=== PATIENT | male | born 1950 | race Hispanic/Latino ===

== ENCOUNTER 2016-09-04 11:14 | Inpatient (IN) | payer MEDICARE ==
--- NOTE | 2016-09-04 12:00 | Emergency Department Report ---
HPI - General Chief Complaint: Medical Clearance Time Seen by Provider: 09/04/16 11:36 - HPI HPI: Room 24 The patient is a 66-year-old male presenting with a chief complaint of hypoxia weakness. Family states the patient seemed confused since last night and has not eaten for the "past couple days." Family states the physical therapist today who noticed the patient's SPO2 to be between 79-81% on states patient has had an occasional cough that has been productive for the past couple of weeks. The patient only complains of feeling tired and weak. Patient denies shortness of breath or pain of any type. When asked if anything is bothering him the patient repeatedly replies "just weak." Location: [see above] Duration: [see above] Quality: Weakness, hypoxia Severity: [see above] Modifying factors: Unknown Context: [see above] Mode of transportation: [not driving] ED Past Medical Hx - Past Medical History Previous Medical History?: Yes Hx Hypertension: Yes (10+ YRS) Hx CVA: Yes (x 2, last one in JUN 2016) Hx of Cancer: Yes (lymphoma s/p chemo Jul 2016. Prostate CA) Hx Seizures: Yes Additional medical history: Prostate Cancer. low platelets - Surgical History Past Surgical History?: Yes Additional Surgical History: port placement. back surgery. foot surg NED - Family History Family history: no significant - Social History Smoking Status: Current Every Day Smoker Substance Use Type: None - Medications Home Medications: Home Medications Medication Instructions Recorded Confirmed Last Taken Type Aspirin EC [Aspirin Enteric Coated 81 mg PO QDAY 03/15/15 09/04/16 09/03/16 History TAB] Atenolol [Tenormin] 50 mg PO BID 03/15/15 08/08/15 07/21/15 History Clopidogrel [Plavix] 75 mg PO QDAY 03/15/15 09/04/16 09/03/16 History Ezetimibe [Zetia] 10 mg PO QDAY 03/15/15 09/04/16 09/03/16 History Potassium Chloride [Klor-Con] 20 meq PO DAILY 03/15/15 08/08/15 07/21/15 History levETIRAcetam [Keppra TAB] 1,500 tab PO BID 03/15/15 09/04/16 09/03/16 History PARoxetine CR (NF) [Paxil (Nf)] 25 mg PO QAM 07/22/15 09/04/16 09/03/16 History Carvedilol [Coreg] 25 mg PO BID 08/08/15 09/04/16 09/03/16 History ALPRAZolam [Xanax TAB] 0.25 mg PO Q8H PRN #20 tablet 10/02/15 09/04/16 09/03/16 Rx amLODIPine [Norvasc] 5 mg PO DAILY 10/06/15 09/04/16 09/03/16 History Chlorthalidone [Chlorthalidone] 25 mg PO DAILY 04/17/16 09/04/16 09/03/16 History HYDROcodone/ACETAMINOPHEN 1 tab PO BID 04/17/16 09/04/16 09/03/16 History [Hydrocodon-Acetaminophen 5-325] Hydralazine HCl [Apresoline TAB] 50 mg PO BID 04/17/16 09/04/16 09/03/16 History Ibrutinib [Imbruvica] 280 mg PO QDAY 09/04/16 09/04/16 09/03/16 History Sulfamethoxazole/Trimethoprim 1 each PO BID 09/04/16 09/04/16 09/03/16 History [Bactrim DS TAB] ED Review of Systems ROS: Stated complaint: LOW OXYGEN Other details as noted in HPI Comment: All other systems reviewed and negative Constitutional: fever, weakness Eyes: denies: eye pain, eye discharge, vision change ENT: denies: ear pain, throat pain Respiratory: cough, other (hypoxia). denies: shortness of breath Cardiovascular: denies: chest pain, palpitations Endocrine: no symptoms reported Gastrointestinal: denies: abdominal pain, nausea, diarrhea Genitourinary: denies: urgency, dysuria Musculoskeletal: denies: back pain, joint swelling, arthralgia Skin: denies: rash, lesions Neurological: denies: headache, weakness, paresthesias Psychiatric: denies: anxiety, depression Hematological/Lymphatic: denies: easy bleeding, easy bruising Physical Exam - Physical Exam Vital Signs: Vital Signs 09/04/16 09/04/16 09/04/16 11:19 11:20 11:22 Pulse Rate Respiratory Rate Blood Pressure 93/48 93/48 93/48 O2 Sat by Pulse 90 94 96 Oximetry 09/04/16 09/04/16 09/04/16 11:23 11:24 11:26 Pulse Rate 95 H 98 H 101 H Respiratory 15 16 18 Rate Blood Pressure 93/48 93/48 93/48 O2 Sat by Pulse 96 95 95 Oximetry 09/04/16 09/04/16 11:28 11:30 Pulse Rate 99 H 99 H Respiratory 18 17 Rate Blood Pressure 93/48 91/52 O2 Sat by Pulse 93 Oximetry Physical Exam: GENERAL: The patient is well-developed well-nourished male lying on stretcher not appearing to be in acute distress. [] HEENT: Normocephalic. Atraumatic. Extraocular motions are intact. Patient has moist mucous membranes. NECK: Supple. Trachea midline CHEST/LUNGS: Clear to auscultation. There is no respiratory distress noted. HEART/CARDIOVASCULAR: Regular. There is no tachycardia. There is no gallop rub or murmur. ABDOMEN: Abdomen is soft, nontender. Patient has normal bowel sounds. There is no abdominal distention. SKIN: There is no rash. There is no edema. There is no diaphoresis. NEURO: The patient is awake but not extremely alert. Patient appears fatigued. The patient is cooperative. The patient has normal speech MUSCULOSKELETAL: There is no evidence of acute injury. ED Course Vital Signs 09/04/16 09/04/16 09/04/16 11:19 11:20 11:22 Pulse Rate Respiratory Rate Blood Pressure 93/48 93/48 93/48 O2 Sat by Pulse 90 94 96 Oximetry 09/04/16 09/04/16 09/04/16 11:23 11:24 11:26 Pulse Rate 95 H 98 H 101 H Respiratory 15 16 18 Rate Blood Pressure 93/48 93/48 93/48 O2 Sat by Pulse 96 95 95 Oximetry 09/04/16 09/04/16 11:28 11:30 Pulse Rate 99 H 99 H Respiratory 18 17 Rate Blood Pressure 93/48 91/52 O2 Sat by Pulse 93 Oximetry ED Medical Decision Making - Lab Data Result diagrams: 09/04/16 11:51 09/04/16 11:51 Laboratory Tests 09/04/16 09/04/16 09/04/16 11:36 11:51 11:51 WBC 4.5 RBC 2.36 L Hgb 7.8 L Hct 23.2 L MCV 98 H MCH 33 H MCHC 34 RDW 18.7 H Plt Count Lymph % (Auto) 16.6 [place] % (Auto) 10.3 H Eos % (Auto) 0.0 Baso % (Auto) 0.2 Lymph # 0.8 L [place] # 0.5 Eos # 0.0 Baso # 0.0 Seg Neutrophils % 72.9 H Seg Neutrophils # 3.3 PT INR APTT POC ABG pH POC ABG pCO2 POC ABG pO2 POC ABG HCO3 POC ABG Total CO2 POC ABG O2 Sat POC ABG Base Excess FiO2 Sodium 132 L Potassium 3.5 L Chloride 94.1 L Carbon Dioxide 23 Anion Gap 18 BUN 15 Creatinine 1.5 Estimated GFR 47 BUN/Creatinine Ratio 10.00 Glucose 87 Calcium 8.6 Troponin T < 0.010 Urine Color [place] Urine Turbidity Clear Urine pH 6.0 Ur Specific [place] 1.021 Urine Protein 30 mg/dl Urine Glucose (UA) Neg Urine Ketones Neg Urine Blood Mod Urine Nitrite Neg Urine Bilirubin Sm Urine Ictotest Negative Urine Urobilinogen 4.0 Ur Leukocyte Esterase Mod Urine WBC (Auto) 24.0 H Urine RBC (Auto) 22.0 U Epithel Cells (Auto) 1.0 Hyaline Casts 1 Urine Mucus Few 09/04/16 09/04/16 12:01 12:35 WBC RBC Hgb Hct MCV MCH MCHC RDW Plt Count Lymph % (Auto) [place] % (Auto) Eos % (Auto) Baso % (Auto) Lymph # [place] # Eos # Baso # Seg Neutrophils % Seg Neutrophils # PT 14.2 INR 1.11 APTT 32.0 POC ABG pH 7.443 POC ABG pCO2 33.7 L POC ABG pO2 52 L POC ABG HCO3 23.0 POC ABG Total CO2 24 POC ABG O2 Sat 88 POC ABG Base Excess -1 FiO2 21 Sodium Potassium Chloride Carbon Dioxide Anion Gap BUN Creatinine Estimated GFR BUN/Creatinine Ratio Glucose Calcium Troponin T Urine Color Urine Turbidity Urine pH Ur Specific [place] Urine Protein Urine Glucose (UA) Urine Ketones Urine Blood Urine Nitrite Urine Bilirubin Urine Ictotest Urine Urobilinogen Ur Leukocyte Esterase Urine WBC (Auto) Urine RBC (Auto) U Epithel Cells (Auto) Hyaline Casts Urine Mucus - EKG Data -: EKG Interpreted by Me EKG shows normal: sinus rhythm Rate: normal - EKG Data When compared to previous EKG there are: previous EKG unavailable Interpretation: nonspecific ST-T wave tani (mild ST depression in leads V5, V6) - Radiology Data Radiology results: image reviewed (chest x-ray) interpreted by me: Chest x-ray-left sided haziness, likely infiltrate versus layered effusion - Differential Diagnosis pneumonia, symptomatic anemia Critical care attestation.: If time is entered above; I have spent that time in minutes in the direct care of this critically ill patient, excluding procedure time. ED Disposition Clinical Impression: Hypoxia, Symptomatic anemia, Pleural effusion on left, Thrombocytopenia Disposition: OP ADMITTED IP TO THIS HOSP Is pt being admited?: Yes Does the pt Need Aspirin: No Condition: Fair Referrals: PRIMARY CARE, [Primary Care Provider] - 3-5 Days Time of Disposition: 12:57 (hospitalist paged)
--- NOTE | 2016-09-04 12:11 | XRay Report ---
PORTABLE CHEST: INDICATION: Low oxygen saturation. COMPARISON: 04/20/2010 FINDINGS: Portable, frontal chest radiographs, 2 images, demonstrate new right chest port tip near the cavoatrial junction. Stable cardiomediastinal silhouette. Mild aortic knob calcifications. Increased [id number] lung haziness, left more than right, suspicious for layering pleural fluid. Left retrocardiac opacity with obscured left hemidiaphragm also now suspected. Left more than right apical scarring/pleural thickening. EKG leads. Stable bones. CONCLUSION: New left more than right hazy suspected pleural effusions as also a right-sided chest port, as described. Please correlate. Thank you for the opportunity to participate in this patient's care.
[2016-09-04 12:17] LABS: INR 1.11 (0.87-1.13)
[2016-09-04 12:18] LABS: Basophils % (Auto) 0.2 % (0.0-1.8); Hematocrit 23.2 % (35.5-45.6); Hemoglobin 7.8 gm/dl (11.8-15.2); Mean Corpuscular HGB Conc 34 % (32-34); Mean Corpuscular Hemoglobin 33 pg (28-32); Mean Corpuscular Volume 98 fl (84-94); Red Blood Count 2.36 M/mm3 (3.65-5.03); Red Cell Distribution Width 18.7 % (13.2-15.2); White Blood Count 4.5 K/mm3 (4.5-11.0)
[2016-09-04 12:25] LABS: Blood Urea Nitrogen 15 mg/dL (9-20); Calcium 8.6 mg/dL (8.4-10.2); Carbon Dioxide 23 mmol/L (22-30); Chloride 94.1 mmol/L (98-107); Glucose 87 mg/dL (75-100); Potassium 3.5 mmol/L (3.6-5.0); Sodium 132 mmol/L (137-145)
[2016-09-04 12:26] LABS: Anion Gap 18 mmol/L
[2016-09-04 12:28] LABS: Bilirubin,Urine SM (Negative); Blood,Urine MOD (Negative); Ketones,Urine NEG (Negative); Leukocyte Esterase,Urine MOD (Negative); Mucus,Urine FEW /HPF; Nitrite,Urine NEG (Negative)
--- NOTE | 2016-09-04 12:34 | Admit Criteria Form ---
Admission Criteria Documentation: ANEMIA, IRON DEFICIENCY OR UNSPECIFIED Clinical Indications for Inpatient Care (Place 'X' for any and all applicable criteria): Admission is indicated for ANY ONE of the following(1)(2)(3)(4)(5)(6)(7): [X] I. Inpatient admission required rather than observation care (Also use Anemia, Iron Deficiency or Unspecified: Observation Care guideline as appropriate) because of ANY ONE of the following: [] a) Hemodynamic instability that is severe or persistent [] b) Active bleeding that cannot be rapidly controlled [] c) CVS symptoms (i.e., dyspnea, chest pain, heart failure) that are severe or persistent [] d) Neurologic symptoms (i.e., cognitive impairment, recurrent syncope or near syncope) that are severe or persistent [] e) Cardiac arrhythmias of immediate concern [] f) Acute peripheral ischemia (e.g., pulseless, cool, mottled, or cyanotic extremity) [X] g) High-risk low platelet count [] h) Acute renal failure [] i) Ongoing transfusion for blood loss (greater than 2 units) [] j) IV fluid to replace significant ongoing (eg, >24 hours) losses (> 3 L/m2 per day) [] k) Pulmonary artery catheter monitoring [] l) Supplemental oxygen or respiratory treatments for over 24 hours that are performable only in acute inpatient setting [] m) Immediate inpatient surgery [] n) Other condition, treatment or monitoring requiring inpatient admission [] II Active massive hemorrhage [] III. Active hemolysis with rapidly progressive anemia [A](6) Extended stay beyond goal length of stay may be needed for (17)(18) []a) Diagnosed cause of anemia requiring longer hospitalization (eg, active GI bleeding, immune hemolysis requiring electrophoresis, complications of malignancy requiring acute care []b) Continued emergent anemia indicators (23) []c) Transfusion reactions []d) Associated leukopenia or thrombocytopenia needing inpatient care []e) Active comorbidities (eg, renal failure, heart failure) The original [facility] Care Guidelines content created by [facility] Care Guidelines has been revised. The portions of the content which have been revised are identified through the use of italic text or in bold. [facility] Guidelines has neither reviewed nor approved the modified material. All other unmodified content is copyright [facility] Care Guidelines. Please see references footnoted in the original [facility] edition 2016 Admission Criteria Met: Yes
[2016-09-04 12:40] LABS: ISTAT Base Excess -1; ISTAT DEVICE 0; ISTAT PCO2 33.7 (35-45); ISTAT PH 7.443 (7.35-7.45); ISTAT PO2 52 (80-105); ISTAT SO2 88; ISTAT TCO2 24
[2016-09-04] MEDS ORDERED: NACL 0.9% 500 ML 500 ML IV ONE ×2 (12:48→12:53)
[2016-09-04 12:52] LABS: Creatine Kinase 8 units/L (55-170)
[2016-09-04 12:56] LABS: Platelet Count 14 K/mm3 (140-440)
[2016-09-04 12:58] LABS: Creatine Kinase MB < 1.0 ng/mL (0.0-4.0)
[2016-09-04] MEDS ORDERED: IBRUTINIB 280 MG PO SCH (15:00)
[2016-09-04] MEDS ORDERED: XANAX PO PRN (15:00)
[2016-09-04] MEDS ORDERED: NON-FORMULARY (Hydralazine Hcl [Apresoline Tab] 50 MG) PO SCH (15:00)
[2016-09-04] MEDS ORDERED: TYLENOL PO PRN (15:04)
[2016-09-04] MEDS ORDERED: MILK OF MAGNESIA PO PRN (15:04)
[2016-09-04] MEDS ORDERED: ZOFRAN IV PRN (15:04)
[2016-09-04] MEDS ORDERED: DILAUDID IV PRN (15:04)
[2016-09-04] MEDS ORDERED: DULCOLAX PR PRN (15:04)
[2016-09-04] MEDS ORDERED: XYLOCAINE 1% MPF 5 mL INFILTRATI ONE (15:17)
[2016-09-04] MEDS ORDERED: ROCEPHIN 1,000 MG in NACL 0.9% 50 ML IV SCH (17:00)
[2016-09-04] MEDS ORDERED: ROCEPHIN/NS 2 GM/100 ML 100 ML IV SCH (17:00)
[2016-09-04] MEDS ORDERED: NACL 0.9% 500 ML 500 ML ONE ×2 (17:42→17:43)
[2016-09-04] MEDS: NORCO 5/325 PO SCH ×2 (18:20→22:17)
[2016-09-04] MEDS: ROCEPHIN/NS 1 GM/50 ML 50 ML IV SCH (18:21)
[2016-09-04] MEDS: KEPPRA PO SCH ×2 (18:21→22:14)
[2016-09-04] MEDS: APRESOLINE PO SCH (22:18)
[2016-09-04] MEDS: COREG PO SCH (22:19)
--- NOTE | 2016-09-04 23:40 | Event Note ---
Date: 09/04/16 See H/p in reports
--- NOTE | 2016-09-05 00:35 | History and Physical Report ---
CHIEF COMPLAINT: 1. Severe weakness. 2. Not eating for the past couple of days. HISTORY OF PRESENT ILLNESS: A 66-year-old male with history of lymphoma on chemotherapy till 07/2016, comes in for severe weakness. His physical therapist noticed that the patient's oxygen saturations were between 79% and 81% and because of which he was sent to the Emergency Room for evaluation. The patient feels short of breath and not getting enough oxygen. Feels very weak. No fever, no chills. PAST MEDICAL HISTORY: Significant for hypertension, CVA with left-sided hemiparesis, last one was in 06/2016. History of cancer. Prostate cancer radiation therapy in 2006. Lymphoma with chemotherapy till 07/2016. Seizures present. Also low platelet count. PAST SURGICAL HISTORY: Port placement, back surgery, foot surgery bilaterally. FAMILY HISTORY: No significant family history. SOCIAL HISTORY: Current everyday smoker. CURRENT MEDICATIONS: Atenolol 250 mg twice a day, Plavix 75 mg once a day, Zetia 10 mg once a day, potassium 20 mEq p.o. once a day, Keppra 1500 mg twice a day, paroxetine 25 mg p.o. daily, Coreg 25 mg b.i.d., Xanax 0.25 p.o. q.8, amlodipine 5 mg p.o. daily, chlorthalidone 25 mg p.o. daily, [place] 5/325 one tablet b.i.d., hydralazine/Apresoline 50 mg p.o. b.i.d., Imbruvica 280 mg p.o. daily, Bactrim-DS one tablet b.i.d. REVIEW OF SYSTEMS: Significant for: CONSTITUTIONAL: Feeling very weak with loss of weight present and poor p.o. intake. Also fever. HEENT: There is no sore throat. No postnasal drip. No blurring of vision. RESPIRATORY SYSTEM: Feels short of breath and cough. CARDIOVASCULAR: No chest pain, no palpitations. GASTROINTESTINAL: No nausea, no vomiting, no diarrhea. MUSCULOSKELETAL SYSTEM: Feels very weak and joint pains. SKIN: No rashes. CENTRAL NERVOUS SYSTEM: No syncope, no seizures. PSYCHIATRIC: Denies anxiety, but depression. HEMATOLOGIC/LYMPHATIC: Denies easy bleeding and easy bruising. A 14-point review of systems is done. In summary, the patient feels weak and short of breath and poor p.o. intake. PHYSICAL EXAMINATION: GENERAL: Elderly male, cooperative during examination. VITAL SIGNS: Temperature is 99, blood pressure is 93/48, O2 sats are 92%, respiratory rate is 18. HEENT: Unremarkable. Pupils equal and reactive. NECK: Supple. No lymphadenopathy, no thyromegaly. LUNGS: Scattered rhonchi bilaterally. No respiratory distress. CARDIOVASCULAR: S1, S2 heard. No gallop, no murmur, no rub. Apical impulse in left fifth intercostal space and midclavicular line. ABDOMEN: Soft and benign. No hepatosplenomegaly, no guarding, no rigidity. Hernial orifices are normal. EXTREMITIES: Good pedal pulses. No pedal edema. CENTRAL NERVOUS SYSTEM: Alert, slightly lethargic, but otherwise oriented. SKIN: Normal. LABORATORY DATA: White count is 4500, hemoglobin is 7.8, hematocrit is 23.2, platelet count is 14, very low. Sodium is 132, potassium is 3.5. BUN and creatinine are 15 and 1.5. Chest x-ray shows bilateral pleural effusions, left more than the right. Also, right-sided chest port. EKG sinus tachycardia, heart rate of about 100. Nonspecific ST-T wave changes. ABG: pH is 7.443, pCO2 of 33.7, pO2 is 52, bicarb is 23, CO2 is 24. ASSESSMENT AND PLAN: 1. Acute respiratory failure secondary to possible lymphoma and effects of chemotherapy. Oxygen and DuoNeb for the time being. 2. Acute anemia. Transfuse 2 units of blood. 3. Severe thrombocytopenia. 4. Plateletpheresis. Platelet transfusion. 5. Hypotension. We will hold Coreg and atenolol. Also, we will hold hydralazine. 6. Lymphoma. We will continue Imbruvica, Oncology consulted. 7. Depression. Continue Paroxetine 25 mg daily. 8. Hyperlipidemia. Continue Zetia 10 mg p.o. daily. 9. Coronary artery disease and cerebrovascular accident. Continue Plavix 75 mg daily. In summary, the patient has anemia, hypoxia, and severe weakness and hyponatremia. The patient to be transfused and also IV fluids for the time being. We will defer to Oncology regarding further care of lymphoma. Also, hospice to be discussed with and patient at the appropriate time, maybe tomorrow or day after tomorrow. Prognosis is fair to guarded. JOB# [id number] NAIMA/CECILIO ARAUJO
[2016-09-05 08:07] LABS: Hematocrit 28.2 % (35.5-45.6); Hemoglobin 9.7 gm/dl (11.8-15.2); Mean Corpuscular HGB Conc 34 % (32-34); Mean Corpuscular Hemoglobin 33 pg (28-32); Mean Corpuscular Volume 96 fl (84-94); Red Blood Count 2.95 M/mm3 (3.65-5.03); Red Cell Distribution Width 17.7 % (13.2-15.2); White Blood Count 5.2 K/mm3 (4.5-11.0)
[2016-09-05 08:25] LABS: Platelet Count 12 K/mm3 (140-440)
[2016-09-05 08:31] LABS: Albumin 2.9 g/dL (3.9-5); Albumin/Globulin Ratio 1.6 %; BUN/Creatinine Ratio 11.66; Bilirubin,Total 2.2 mg/dL (0.1-1.2); Calcium 8.4 mg/dL (8.4-10.2); Chloride 92.8 mmol/L (98-107); Potassium 3.3 mmol/L (3.6-5.0); Total Protein 4.7 g/dL (6.3-8.2)
--- NOTE | 2016-09-05 09:25 | Hem/Onc Progress Note ---
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 I discussed the case with [facility] and they've advised to hold ibrutinib. Prognosis is poor. Agree with blood and platelet transfusion. May need to be considering hospice if the patient does not improve. Discussed with Subjective Date of service: 09/05/16 Interval history: Patient with history of B-cell prolymphocytic leukemia. Patient has been under [facility] care. He had initially been treated with Rituxan along with Cytoxan and vincristine and prednisone but had a lot of difficulty tolerating the treatment. Patient has also had right-sided MCA stroke with associated encephalopathy. He was recently switched to the ibrutinib which he had difficulty tolerating to and the dose has been reduced by half. Patient was admitted with worsening shortness of breath hypoxia and evidence of pneumonia and pancytopenia. Objective - Exam Narrative Exam: Quiet - Constitutional Vitals: Last Vital Signs Temp 96.7 F L 09/05/16 07:20 Pulse 80 09/05/16 07:20 Resp 20 09/05/16 07:20 BP 113/63 09/05/16 07:20 Pulse Ox 98 09/05/16 07:20 General appearance: disheveled Performance status: 4-completely disabled - Neck Neck: supple - Respiratory Respiratory: bilateral: diminished - Cardiovascular Rhythm: regular Extremities: No edema - Gastrointestinal General gastrointestinal: Present: soft - Labs Lab Results: Laboratory Results - last 24 hr 09/05/16 09/05/16 08:00 08:00 WBC 5.2 RBC 2.95 L Hgb 9.7 L Hct 28.2 L MCV 96 H MCH 33 H MCHC 34 RDW 17.7 H Plt Count 12 L* Sodium 132 L Potassium 3.3 L Chloride 92.8 L Carbon Dioxide 25 Anion Gap 18 BUN 21 H Creatinine 1.8 H Estimated GFR 38 BUN/Creatinine Ratio 11.66 Glucose 81 Calcium 8.4 Total Bilirubin 2.2 H AST 95 H ALT 70 H Alkaline Phosphatase 171 H Total Protein 4.7 L Albumin 2.9 L Albumin/Globulin Ratio 1.6
[2016-09-05 09:28] LABS: Basophils % (Manual) 0 % (0.0-1.8); Blastocytes % (Manual) 0 %; Eosinophils % (Manual) 0 % (0.0-4.3)
[2016-09-05 09:29] LABS: Anisocytosis 1+; Macrocytosis 1+; Ovalocytes 1+
[2016-09-05 09:30] LABS: Acanthocytes Few; Polychromasia 1+; Schistocytes Rare
[2016-09-05 09:31] LABS: Diff Status Complete; Platelet Estimate Appears Decreased
[2016-09-05] MEDS ORDERED: IBRUTINIB 280 MG PO SCH (10:00)
[2016-09-05] MEDS ORDERED: PAROXETINE 25 MG PO SCH (10:00)
[2016-09-05] MEDS: NORVASC PO SCH (10:41)
[2016-09-05] MEDS: APRESOLINE PO SCH ×2 (10:41→21:21)
[2016-09-05] MEDS: COREG PO SCH ×2 (10:41→21:20)
[2016-09-05] MEDS: KEPPRA PO SCH ×2 (10:45→21:19)
[2016-09-05] MEDS: NORCO 5/325 PO SCH ×2 (10:45→21:18)
[2016-09-05] MEDS ORDERED: NACL 0.9% 500 ML 500 ML IV ONE (12:00)
--- NOTE | 2016-09-05 17:19 | Progress Note ---
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 HEENT: Normocephalic. Atraumatic. No conjunctival congestion or icterus. Patient has dry mucous membranes. NECK: Supple. Trachea midline. CHEST/LUNGS: Clear to auscultated bilaterally, breathing nonlabored. No wheezes crackles or rhonchi. HEART/CARDIOVASCULAR: Regular in rate and rhythm. S1 and S2 positive. ABDOMEN: Abdomen is soft, nontender. Patient has normal bowel sounds. SKIN: Multiple bruises on extremities. Warm and dry. NEURO: No focal motor deficit. Follows command, but appears to be confused MUSCULOSKELETAL: No joint effusion or tenderness. Generalized muscle wasting EXTRIMITY: No edema, no cyanosis or clubbing. PSYCH: Cooperative. - Constitutional Vitals: Temp Pulse Resp BP Pulse Ox 98.2 F 88 16 100/56 97 09/05/16 16:57 09/05/16 16:57 09/05/16 16:57 09/05/16 16:57 09/05/16 14:20 Results - Labs CBC & Chem 7: 09/06/16 04:48 09/06/16 04:48 Labs: Laboratory Last Values WBC 5.2 K/mm3 (4.5-11.0) 09/05/16 08:00 RBC 2.95 M/mm3 (3.65-5.03) L 09/05/16 08:00 Hgb 9.7 gm/dl (11.8-15.2) L 09/05/16 08:00 Hct 28.2 % (35.5-45.6) L 09/05/16 08:00 MCV 96 fl (84-94) H 09/05/16 08:00 MCH 33 pg (28-32) H 09/05/16 08:00 MCHC 34 % (32-34) 09/05/16 08:00 RDW 17.7 % (13.2-15.2) H 09/05/16 08:00 Plt Count 12 K/mm3 (140-440) L* 09/05/16 08:00 Lymph % (Auto) 16.6 % (13.4-35.0) 09/04/16 11:51 [place] % (Auto) 10.3 % (0.0-7.3) H 09/04/16 11:51 Eos % (Auto) 0.0 % (0.0-4.3) 09/04/16 11:51 Baso % (Auto) 0.2 % (0.0-1.8) 09/04/16 11:51 Lymph # 0.8 K/mm3 (1.2-5.4) L 09/04/16 11:51 [place] # 0.5 K/mm3 (0.0-0.8) 09/04/16 11:51 Eos # 0.0 K/mm3 (0.0-0.4) 09/04/16 11:51 Baso # 0.0 K/mm3 (0.0-0.1) 09/04/16 11:51 Add Manual Diff Complete 09/05/16 08:00 Total Counted 100 09/05/16 08:00 Seg Neutrophils % 72.9 % (40.0-70.0) H 09/04/16 11:51 Seg Neuts % (Manual) 90.0 % (40.0-70.0) H 09/05/16 08:00 Band Neutrophils % 2.0 % 09/05/16 08:00 Lymphocytes % (Manual) 5.0 % (13.4-35.0) L 09/05/16 08:00 Reactive Lymphs % (Man) 1.0 % 09/05/16 08:00 Monocytes % (Manual) 2.0 % (0.0-7.3) 09/05/16 08:00 Eosinophils % (Manual) 0 % (0.0-4.3) 09/05/16 08:00 Basophils % (Manual) 0 % (0.0-1.8) 09/05/16 08:00 Metamyelocytes % 0 % 09/05/16 08:00 Myelocytes % 0 % 09/05/16 08:00 Promyelocytes % 0 % 09/05/16 08:00 Blast Cells % 0 % 09/05/16 08:00 Nucleated RBC % Not Reportable 09/05/16 08:00 Seg Neutrophils # 3.3 K/mm3 (1.8-7.7) 09/04/16 11:51 Seg Neutrophils # Man 4.7 K/mm3 (1.8-7.7) 09/05/16 08:00 Band Neutrophils # 0.1 K/mm3 09/05/16 08:00 Lymphocytes # (Manual) 0.3 K/mm3 (1.2-5.4) L 09/05/16 08:00 Abs React Lymphs (Man) 0.1 K/mm3 09/05/16 08:00 Monocytes # (Manual) 0.1 K/mm3 (0.0-0.8) 09/05/16 08:00 Eosinophils # (Manual) 0.0 K/mm3 (0.0-0.4) 09/05/16 08:00 Basophils # (Manual) 0.0 K/mm3 (0.0-0.1) 09/05/16 08:00 Metamyelocytes # 0.0 K/mm3 09/05/16 08:00 Myelocytes # 0.0 K/mm3 09/05/16 08:00 Promyelocytes # 0.0 K/mm3 09/05/16 08:00 Blast Cells # 0.0 K/mm3 09/05/16 08:00 WBC Morphology Not Reportable 09/05/16 08:00 Hypersegmented Neuts Not Reportable 09/05/16 08:00 Hyposegmented Neuts Not Reportable 09/05/16 08:00 Hypogranular Neuts Not Reportable 09/05/16 08:00 Smudge Cells Not Reportable 09/05/16 08:00 Toxic Granulation Not Reportable 09/05/16 08:00 Toxic Vacuolation Not Reportable 09/05/16 08:00 Dohle Bodies Not Reportable 09/05/16 08:00 Pelger-Huet Anomaly Not Reportable 09/05/16 08:00 Emmy Rods Not Reportable 09/05/16 08:00 Platelet Estimate Appears decreased 09/05/16 08:00 Clumped Platelets Not Reportable 09/05/16 08:00 Plt Clumps, EDTA Not Reportable 09/05/16 08:00 Large Platelets Not Reportable 09/05/16 08:00 Giant Platelets Not Reportable 09/05/16 08:00 Platelet Satelliting Not Reportable 09/05/16 08:00 Plt Morphology Comment Not Reportable 09/05/16 08:00 RBC Morphology Not Reportable 09/05/16 08:00 Dimorphic RBCs Not Reportable 09/05/16 08:00 Polychromasia 1+ 09/05/16 08:00 Hypochromasia Not Reportable 09/05/16 08:00 Poikilocytosis Not Reportable 09/05/16 08:00 Anisocytosis 1+ 09/05/16 08:00 Microcytosis Not Reportable 09/05/16 08:00 Macrocytosis 1+ 09/05/16 08:00 Spherocytes Not Reportable 09/05/16 08:00 Pappenheimer Bodies Not Reportable 09/05/16 08:00 Sickle Cells Not Reportable 09/05/16 08:00 Target Cells Not Reportable 09/05/16 08:00 Tear Drop Cells Not Reportable 09/05/16 08:00 Ovalocytes 1+ 09/05/16 08:00 Helmet Cells Not Reportable 09/05/16 08:00 [place] Bodies Not Reportable 09/05/16 08:00 [place] Rings Not Reportable 09/05/16 08:00 [place] Cells Not Reportable 09/05/16 08:00 Bite Cells Not Reportable 09/05/16 08:00 Crenated Cell Not Reportable 09/05/16 08:00 Elliptocytes Not Reportable 09/05/16 08:00 Acanthocytes (Spur) Few 09/05/16 08:00 Rouleaux Not Reportable 09/05/16 08:00 Hemoglobin C Crystals Not Reportable 09/05/16 08:00 Schistocytes Rare 09/05/16 08:00 Malaria parasites Not Reportable 09/05/16 08:00 Rian Bodies Not Reportable 09/05/16 08:00 Hem Pathologist Commnt No 09/05/16 08:00 PT 14.2 Sec. (12.2-14.9) 09/04/16 12:01 INR 1.11 (0.87-1.13) 09/04/16 12:01 APTT 32.0 Sec. (24.2-36.6) 09/04/16 12:01 POC ABG pH 7.443 (7.35-7.45) 09/04/16 12:35 POC ABG pCO2 33.7 (35-45) L 09/04/16 12:35 POC ABG pO2 52 (80-105) L 09/04/16 12:35 POC ABG HCO3 23.0 09/04/16 12:35 POC ABG Total CO2 24 09/04/16 12:35 POC ABG O2 Sat 88 09/04/16 12:35 POC ABG Base Excess -1 09/04/16 12:35 FiO2 21 % 09/04/16 12:35 Sodium 132 mmol/L (137-145) L 09/05/16 08:00 Potassium 3.3 mmol/L (3.6-5.0) L 09/05/16 08:00 Chloride 92.8 mmol/L (98-107) L 09/05/16 08:00 Carbon Dioxide 25 mmol/L (22-30) 09/05/16 08:00 Anion Gap 18 mmol/L 09/05/16 08:00 BUN 21 mg/dL (9-20) H 09/05/16 08:00 Creatinine 1.8 mg/dL (0.8-1.5) H 09/05/16 08:00 Estimated GFR 38 ml/min 09/05/16 08:00 BUN/Creatinine Ratio 11.66 % 09/05/16 08:00 Glucose 81 mg/dL (75-100) 09/05/16 08:00 Calcium 8.4 mg/dL (8.4-10.2) 09/05/16 08:00 Total Bilirubin 2.2 mg/dL (0.1-1.2) H 09/05/16 08:00 AST 95 units/L (5-40) H 09/05/16 08:00 ALT 70 units/L (7-56) H 09/05/16 08:00 Alkaline Phosphatase 171 units/L (35-129) H 09/05/16 08:00 Total Creatine Kinase 8 units/L (55-170) L 09/04/16 11:51 CK-MB (CK-2) < 1.0 ng/mL (0.0-4.0) 09/04/16 11:51 CK-MB (CK-2) Rel Index 12.5 (0-4) H 09/04/16 11:51 Troponin T < 0.010 ng/mL (0.00-0.029) 09/04/16 11:51 NT-Pro-B Natriuret Pep 902.7 pg/mL (0-900) H 09/04/16 11:51 Total Protein 4.7 g/dL (6.3-8.2) L 09/05/16 08:00 Albumin 2.9 g/dL (3.9-5) L 09/05/16 08:00 Albumin/Globulin Ratio 1.6 % 09/05/16 08:00 Urine Color [place] (Yellow) 09/04/16 11:36 Urine Turbidity Clear (Clear) 09/04/16 11:36 Urine pH 6.0 (5.0-7.0) 09/04/16 11:36 Ur Specific [place] 1.021 (1.003-1.030) 09/04/16 11:36 Urine Protein 30 mg/dl mg/dL (Negative) 09/04/16 11:36 Urine Glucose (UA) Neg mg/dL (Negative) 09/04/16 11:36 Urine Ketones Neg mg/dL (Negative) 09/04/16 11:36 Urine Blood Mod (Negative) 09/04/16 11:36 Urine Nitrite Neg (Negative) 09/04/16 11:36 Urine Bilirubin Sm (Negative) 09/04/16 11:36 Urine Ictotest Negative (Negative) 09/04/16 11:36 Urine Urobilinogen 4.0 mg/dL (<2.0) 09/04/16 11:36 Ur Leukocyte Esterase Mod (Negative) 09/04/16 11:36 Urine WBC (Auto) 24.0 /HPF (0.0-6.0) H 09/04/16 11:36 Urine RBC (Auto) 22.0 /HPF (0.0-6.0) 09/04/16 11:36 U Epithel Cells (Auto) 1.0 /HPF (0-13.0) 09/04/16 11:36 Hyaline Casts 1 /LPF 09/04/16 11:36 Urine Mucus Few /HPF 09/04/16 11:36 Blood Type B POSITIVE 09/04/16 13:50 Antibody Screen Negative 09/04/16 13:50 Crossmatch See Detail 09/04/16 13:50
[2016-09-06 05:21] LABS: Hematocrit 28.8 % (35.5-45.6); Hemoglobin 9.8 gm/dl (11.8-15.2); Mean Corpuscular HGB Conc 34 % (32-34); Mean Corpuscular Hemoglobin 33 pg (28-32); Mean Corpuscular Volume 97 fl (84-94); Red Blood Count 2.98 M/mm3 (3.65-5.03); Red Cell Distribution Width 18.2 % (13.2-15.2); White Blood Count 7.6 K/mm3 (4.5-11.0)
[2016-09-06 05:34] LABS: Platelet Count 17 K/mm3 (140-440)
[2016-09-06 05:41] LABS: Calcium 8.7 mg/dL (8.4-10.2); Chloride 93.7 mmol/L (98-107); Potassium 3.9 mmol/L (3.6-5.0)
[2016-09-06 08:03] LABS: Basophils % (Manual) 0 % (0.0-1.8); Blastocytes % (Manual) 0 %; Eosinophils % (Manual) 0 % (0.0-4.3)
[2016-09-06 08:04] LABS: Anisocytosis 1+
[2016-09-06 08:05] LABS: Basophilic Stippling Rare; Diff Status Complete; Ovalocytes 1+; Polychromasia Few; Schistocytes Rare
[2016-09-06] MEDS: D5NS 1,000 ML IV SCH ×2 (09:13→19:30)
--- NOTE | 2016-09-06 09:23 | Hem/Onc Progress Note ---
Assessment and Plan prog poor plt transfusion hold ibrutinib hospice eval Subjective Date of service: 09/06/16 Interval history: Patient with history of B-cell prolymphocytic leukemia. Patient has been under [facility] care. He had initially been treated with Rituxan along with Cytoxan and vincristine and prednisone but had a lot of difficulty tolerating the treatment. Patient has also had right-sided MCA stroke with associated encephalopathy. He was recently switched to the ibrutinib which he had difficulty tolerating to and the dose has been reduced by half. Patient was admitted with worsening shortness of breath hypoxia and evidence of pneumonia and pancytopenia. confused today dec urine output not present Objective - Exam Narrative Exam: weak - Constitutional Vitals: Last Vital Signs Temp 98 F 09/06/16 08:00 Pulse 90 09/06/16 08:00 Resp 18 09/06/16 08:00 BP 120/62 09/06/16 08:00 Pulse Ox 97 09/06/16 08:00 General appearance: disheveled Performance status: 4-completely disabled - Cardiovascular Rhythm: regular Extremity abnormal: edema - Gastrointestinal General gastrointestinal: Present: soft - Labs Lab Results: Laboratory Results - last 24 hr 09/05/16 09/06/16 09/06/16 08:00 04:48 04:48 WBC 7.6 RBC 2.98 L Hgb 9.8 L Hct 28.8 L MCV 97 H MCH 33 H MCHC 34 RDW 18.2 H Plt Count 17 L* Add Manual Diff Complete Complete Total Counted 100 100 Seg Neuts % (Manual) 90.0 H 82.0 H Band Neutrophils % 2.0 7.0 Lymphocytes % (Manual) 5.0 L 6.0 L Reactive Lymphs % (Man) 1.0 0 Monocytes % (Manual) 2.0 5.0 Eosinophils % (Manual) 0 0 Basophils % (Manual) 0 0 Metamyelocytes % 0 0 Myelocytes % 0 0 Promyelocytes % 0 0 Blast Cells % 0 0 Nucleated RBC % Not Reportable 3.0 H Seg Neutrophils # Man 4.7 6.2 Band Neutrophils # 0.1 0.5 Lymphocytes # (Manual) 0.3 L 0.5 L Abs React Lymphs (Man) 0.1 0.0 Monocytes # (Manual) 0.1 0.4 Eosinophils # (Manual) 0.0 0.0 Basophils # (Manual) 0.0 0.0 Metamyelocytes # 0.0 0.0 Myelocytes # 0.0 0.0 Promyelocytes # 0.0 0.0 Blast Cells # 0.0 0.0 WBC Morphology Not Reportable Not Reportable Hypersegmented Neuts Not Reportable Not Reportable Hyposegmented Neuts Not Reportable Not Reportable Hypogranular Neuts Not Reportable Not Reportable Smudge Cells Not Reportable Not Reportable Toxic Granulation Not Reportable Not Reportable Toxic Vacuolation Not Reportable Not Reportable Dohle Bodies Not Reportable Not Reportable Pelger-Huet Anomaly Not Reportable Not Reportable Emmy Rods Not Reportable Not Reportable Platelet Estimate Appears decreased Not Reportable Clumped Platelets Not Reportable Not Reportable Plt Clumps, EDTA Not Reportable Not Reportable Large Platelets Not Reportable Not Reportable Giant Platelets Not Reportable Not Reportable Platelet Satelliting Not Reportable Not Reportable Plt Morphology Comment Not Reportable Not Reportable RBC Morphology Not Reportable Not Reportable Dimorphic RBCs Not Reportable Not Reportable Polychromasia 1+ Few Hypochromasia Not Reportable Not Reportable Poikilocytosis Not Reportable Not Reportable Basophilic [place]ipp[place] Rare Anisocytosis 1+ 1+ Microcytosis Not Reportable Not Reportable Macrocytosis 1+ Not Reportable Spherocytes Not Reportable Not Reportable Pappenheimer Bodies Not Reportable Not Reportable Sickle Cells Not Reportable Not Reportable Target Cells Not Reportable Not Reportable Tear Drop Cells Not Reportable Not Reportable Ovalocytes 1+ 1+ Helmet Cells Not Reportable Not Reportable [place] Bodies Not Reportable Not Reportable [place] Rings Not Reportable Not Reportable [place] Cells Not Reportable Not Reportable Bite Cells Not Reportable Not Reportable Crenated Cell Not Reportable Not Reportable Elliptocytes Not Reportable Not Reportable Acanthocytes (Spur) Few Not Reportable Rouleaux Not Reportable Not Reportable Hemoglobin C Crystals Not Reportable Not Reportable Schistocytes Rare Rare Malaria parasites Not Reportable Not Reportable Rian Bodies Not Reportable Not Reportable Hem Pathologist Commnt No No Sodium 134 L Potassium 3.9 Chloride 93.7 L Carbon Dioxide 19 L Anion Gap 25 BUN 24 H Creatinine 2.0 H Estimated GFR 34 BUN/Creatinine Ratio 12.00 Glucose 57 L Calcium 8.7
[2016-09-06] MEDS: NORVASC PO SCH (11:59)
[2016-09-06] MEDS ORDERED: NACL 0.9% 500 ML 500 ML IV ONE (12:00)
[2016-09-06] MEDS: NORCO 5/325 PO SCH ×2 (12:00→22:37)
[2016-09-06] MEDS: APRESOLINE PO SCH ×2 (12:00→22:40)
[2016-09-06] MEDS: KEPPRA PO SCH ×2 (12:01→22:36)
[2016-09-06] MEDS: COREG PO SCH ×2 (12:01→23:40)
[2016-09-06] MEDS: ROCEPHIN/NS 1 GM/50 ML 50 ML IV SCH ×2 (20:00→20:01)
[2016-09-07 07:00] LABS: Hematocrit 32.9 % (35.5-45.6); Hemoglobin 10.6 gm/dl (11.8-15.2); Mean Corpuscular HGB Conc 32 % (32-34); Mean Corpuscular Hemoglobin 32 pg (28-32); Mean Corpuscular Volume 100 fl (84-94); Red Cell Distribution Width 19.5 % (13.2-15.2); White Blood Count 16.4 K/mm3 (4.5-11.0)
[2016-09-07 07:11] LABS: Platelet Count 33 K/mm3 (140-440)
[2016-09-07 08:12] LABS: Anisocytosis 1+; Basophils % (Manual) 0 % (0.0-1.8); Blastocytes % (Manual) 0 %; Eosinophils % (Manual) 0 % (0.0-4.3)
[2016-09-07 08:13] LABS: Ovalocytes Few; Polychromasia Rare; Toxic Vacuolation Few
[2016-09-07 08:14] LABS: Diff Status Complete; Platelet Estimate Appears Decreased
--- NOTE | 2016-09-07 08:24 | Hem/Onc Progress Note ---
Assessment and Plan prog poor plt transfusion hold ibrutinib hospice eval Discussed with yesterday about prognosis. I would suggest hospice. sheis still thinking about it. I have discussed with [facility] also patient's overall prognosis which is very poor Subjective Date of service: 09/07/16 Interval history: Patient with history of B-cell prolymphocytic leukemia. Patient has been under [facility] care. He had initially been treated with Rituxan along with Cytoxan and vincristine and prednisone but had a lot of difficulty tolerating the treatment. Patient has also had right-sided MCA stroke with associated encephalopathy. He was recently switched to the ibrutinib which he had difficulty tolerating to and the dose has been reduced by half. Patient was admitted with worsening shortness of breath hypoxia and evidence of pneumonia and pancytopenia. confused today - worse dec urine output not present Objective - Exam Narrative Exam: weak and confused - Constitutional Vitals: Last Vital Signs Temp 98.7 F 09/07/16 04:00 Pulse 100 H 09/07/16 04:00 Resp 22 09/07/16 04:00 BP 125/60 09/07/16 04:00 Pulse Ox 97 09/07/16 04:00 General appearance: disheveled, malodorous Performance status: 4-completely disabled - Respiratory Respiratory: bilateral: diminished - Cardiovascular Rhythm: regular - Gastrointestinal General gastrointestinal: Present: soft - Labs Lab Results: Laboratory Results - last 24 hr 09/07/16 06:23 WBC 16.4 H RBC 3.30 L Hgb 10.6 L Hct 32.9 L MCV 100 H D MCH 32 MCHC 32 RDW 19.5 H Plt Count 33 L Add Manual Diff Complete Total Counted 100 Seg Neuts % (Manual) 85.0 H Band Neutrophils % 5.0 Lymphocytes % (Manual) 5.0 L Reactive Lymphs % (Man) 0 Monocytes % (Manual) 3.0 Eosinophils % (Manual) 0 Basophils % (Manual) 0 Metamyelocytes % 2.0 Myelocytes % 0 Promyelocytes % 0 Blast Cells % 0 Nucleated RBC % 3.0 H Seg Neutrophils # Man 13.9 H Band Neutrophils # 0.8 Lymphocytes # (Manual) 0.8 L Abs React Lymphs (Man) 0.0 Monocytes # (Manual) 0.5 Eosinophils # (Manual) 0.0 Basophils # (Manual) 0.0 Metamyelocytes # 0.3 Myelocytes # 0.0 Promyelocytes # 0.0 Blast Cells # 0.0 WBC Morphology Not Reportable Hypersegmented Neuts Not Reportable Hyposegmented Neuts Not Reportable Hypogranular Neuts Not Reportable Smudge Cells Not Reportable Toxic Granulation Not Reportable Toxic Vacuolation Few Dohle Bodies Not Reportable Pelger-[place]uet Anomaly Not Reportable Emmy Rods Not Reportable Platelet Estimate Appears decreased Clumped Platelets Not Reportable Plt Clumps, EDTA Not Reportable Large Platelets Not Reportable Giant Platelets Not Reportable Platelet Satelliting Not Reportable Plt Morphology Comment Not Reportable RBC Morphology Not Reportable Dimorphic RBCs Not Reportable Polychromasia Rare Hypochromasia Not Reportable Poikilocytosis Not Reportable Anisocytosis 1+ Microcytosis Not Reportable Macrocytosis Not Reportable Spherocytes Not Reportable Pappenheimer Bodies Not Reportable Sickle Cells Not Reportable Target Cells Not Reportable Tear Drop Cells Not Reportable Ovalocytes Few Helmet Cells Not Reportable [place] Bodies Not Reportable [place] Rings Not Reportable [place] Cells Not Reportable Bite Cells Not Reportable Crenated Cell Not Reportable Elliptocytes Not Reportable Acanthocytes (Spur) Not Reportable Rouleaux Not Reportable Hemoglobin C Crystals Not Reportable Schistocytes Not Reportable Malaria parasites Not Reportable Rian Bodies Not Reportable Hem Pathologist Commnt No
[2016-09-07 08:48] VITALS: BP 120/64
--- NOTE | 2016-09-07 09:24 | Progress Note ---
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 Medical records and medication list reviewed. No acute event overnight noted by the RN. Patient has poor oral intake and remains confused. renal function further declined. at bedside, discussed about hospice Hospitalist Physical - Physical exam Narrative exam: GENERAL: Elderly white male lying on bed appeared to be in no discomfort. HEENT: Normocephalic. Atraumatic. No conjunctival congestion or icterus. Patient has dry mucous membranes. NECK: Supple. Trachea midline. CHEST/LUNGS: Clear to auscultated bilaterally, breathing nonlabored. No wheezes crackles or rhonchi. HEART/CARDIOVASCULAR: Regular in rate and rhythm. S1 and S2 positive. ABDOMEN: Abdomen is soft, nontender. Patient has normal bowel sounds. SKIN: Multiple bruises on extremities. Warm and dry. NEURO: No focal motor deficit. Follows command, but appears to be confused MUSCULOSKELETAL: No joint effusion or tenderness. Generalized muscle wasting EXTRIMITY: No edema, no cyanosis or clubbing. PSYCH: Cooperative. - Constitutional Vitals: Temp Pulse Resp BP Pulse Ox 98.2 F 90 22 120/64 98 09/07/16 08:00 09/07/16 08:00 09/07/16 08:00 09/07/16 08:00 09/07/16 08:00 Results - Labs CBC & Chem 7: 09/07/16 06:23 09/06/16 04:48 Labs: Laboratory Last Values WBC 16.4 K/mm3 (4.5-11.0) H 09/07/16 06:23 RBC 3.30 M/mm3 (3.65-5.03) L 09/07/16 06:23 Hgb 10.6 gm/dl (11.8-15.2) L 09/07/16 06:23 Hct 32.9 % (35.5-45.6) L 09/07/16 06:23 MCV 100 fl (84-94) H D 09/07/16 06:23 MCH 32 pg (28-32) 09/07/16 06:23 MCHC 32 % (32-34) 09/07/16 06:23 RDW 19.5 % (13.2-15.2) H 09/07/16 06:23 Plt Count 33 K/mm3 (140-440) L 09/07/16 06:23 Lymph % (Auto) 16.6 % (13.4-35.0) 09/04/16 11:51 [place] % (Auto) 10.3 % (0.0-7.3) H 09/04/16 11:51 Eos % (Auto) 0.0 % (0.0-4.3) 09/04/16 11:51 Baso % (Auto) 0.2 % (0.0-1.8) 09/04/16 11:51 Lymph # 0.8 K/mm3 (1.2-5.4) L 09/04/16 11:51 [place] # 0.5 K/mm3 (0.0-0.8) 09/04/16 11:51 Eos # 0.0 K/mm3 (0.0-0.4) 09/04/16 11:51 Baso # 0.0 K/mm3 (0.0-0.1) 09/04/16 11:51 Add Manual Diff Complete 09/07/16 06:23 Total Counted 100 09/07/16 06:23 Seg Neutrophils % 72.9 % (40.0-70.0) H 09/04/16 11:51 Seg Neuts % (Manual) 85.0 % (40.0-70.0) H 09/07/16 06:23 Band Neutrophils % 5.0 % 09/07/16 06:23 Lymphocytes % (Manual) 5.0 % (13.4-35.0) L 09/07/16 06:23 Reactive Lymphs % (Man) 0 % 09/07/16 06:23 Monocytes % (Manual) 3.0 % (0.0-7.3) 09/07/16 06:23 Eosinophils % (Manual) 0 % (0.0-4.3) 09/07/16 06:23 Basophils % (Manual) 0 % (0.0-1.8) 09/07/16 06:23 Metamyelocytes % 2.0 % 09/07/16 06:23 Myelocytes % 0 % 09/07/16 06:23 Promyelocytes % 0 % 09/07/16 06:23 Blast Cells % 0 % 09/07/16 06:23 Nucleated RBC % 3.0 % (0.0-0.9) H 09/07/16 06:23 Seg Neutrophils # 3.3 K/mm3 (1.8-7.7) 09/04/16 11:51 Seg Neutrophils # Man 13.9 K/mm3 (1.8-7.7) H 09/07/16 06:23 Band Neutrophils # 0.8 K/mm3 09/07/16 06:23 Lymphocytes # (Manual) 0.8 K/mm3 (1.2-5.4) L 09/07/16 06:23 Abs React Lymphs (Man) 0.0 K/mm3 09/07/16 06:23 Monocytes # (Manual) 0.5 K/mm3 (0.0-0.8) 09/07/16 06:23 Eosinophils # (Manual) 0.0 K/mm3 (0.0-0.4) 09/07/16 06:23 Basophils # (Manual) 0.0 K/mm3 (0.0-0.1) 09/07/16 06:23 Metamyelocytes # 0.3 K/mm3 09/07/16 06:23 Myelocytes # 0.0 K/mm3 09/07/16 06:23 Promyelocytes # 0.0 K/mm3 09/07/16 06:23 Blast Cells # 0.0 K/mm3 09/07/16 06:23 WBC Morphology Not Reportable 09/07/16 06:23 Hypersegmented Neuts Not Reportable 09/07/16 06:23 Hyposegmented Neuts Not Reportable 09/07/16 06:23 Hypogranular Neuts Not Reportable 09/07/16 06:23 Smudge Cells Not Reportable 09/07/16 06:23 Toxic Granulation Not Reportable 09/07/16 06:23 Toxic Vacuolation Few 09/07/16 06:23 Dohle Bodies Not Reportable 09/07/16 06:23 Pelger-Huet Anomaly Not Reportable 09/07/16 06:23 Emmy Rods Not Reportable 09/07/16 06:23 Platelet Estimate Appears decreased 09/07/16 06:23 Clumped Platelets Not Reportable 09/07/16 06:23 Plt Clumps, EDTA Not Reportable 09/07/16 06:23 Large Platelets Not Reportable 09/07/16 06:23 Giant Platelets Not Reportable 09/07/16 06:23 Platelet Satelliting Not Reportable 09/07/16 06:23 Plt Morphology Comment Not Reportable 09/07/16 06:23 RBC Morphology Not Reportable 09/07/16 06:23 Dimorphic RBCs Not Reportable 09/07/16 06:23 Polychromasia Rare 09/07/16 06:23 Hypochromasia Not Reportable 09/07/16 06:23 Poikilocytosis Not Reportable 09/07/16 06:23 Basophilic Stippling Rare 09/06/16 04:48 Anisocytosis 1+ 09/07/16 06:23 Microcytosis Not Reportable 09/07/16 06:23 Macrocytosis Not Reportable 09/07/16 06:23 Spherocytes Not Reportable 09/07/16 06:23 Pappenheimer Bodies Not Reportable 09/07/16 06:23 Sickle Cells Not Reportable 09/07/16 06:23 Target Cells Not Reportable 09/07/16 06:23 Tear Drop Cells Not Reportable 09/07/16 06:23 Ovalocytes Few 09/07/16 06:23 Helmet Cells Not Reportable 09/07/16 06:23 Farmer-[place] Bodies Not Reportable 09/07/16 06:23 [place] Rings Not Reportable 09/07/16 06:23 Jackson Cells Not Reportable 09/07/16 06:23 Bite Cells Not Reportable 09/07/16 06:23 Crenated Cell Not Reportable 09/07/16 06:23 Elliptocytes Not Reportable 09/07/16 06:23 Acanthocytes (Spur) Not Reportable 09/07/16 06:23 Rouleaux Not Reportable 09/07/16 06:23 Hemoglobin C Crystals Not Reportable 09/07/16 06:23 Schistocytes Not Reportable 09/07/16 06:23 Malaria parasites Not Reportable 09/07/16 06:23 Rian Bodies Not Reportable 09/07/16 06:23 Hem Pathologist Commnt No 09/07/16 06:23 PT 14.2 Sec. (12.2-14.9) 09/04/16 12:01 INR 1.11 (0.87-1.13) 09/04/16 12:01 APTT 32.0 Sec. (24.2-36.6) 09/04/16 12:01 POC ABG pH 7.443 (7.35-7.45) 09/04/16 12:35 POC ABG pCO2 33.7 (35-45) L 09/04/16 12:35 POC ABG pO2 52 (80-105) L 09/04/16 12:35 POC ABG HCO3 23.0 09/04/16 12:35 POC ABG Total CO2 24 09/04/16 12:35 POC ABG O2 Sat 88 09/04/16 12:35 POC ABG Base Excess -1 09/04/16 12:35 FiO2 21 % 09/04/16 12:35 Sodium 134 mmol/L (137-145) L 09/06/16 04:48 Potassium 3.9 mmol/L (3.6-5.0) 09/06/16 04:48 Chloride 93.7 mmol/L (98-107) L 09/06/16 04:48 Carbon Dioxide 19 mmol/L (22-30) L 09/06/16 04:48 Anion Gap 25 mmol/L 09/06/16 04:48 BUN 24 mg/dL (9-20) H 09/06/16 04:48 Creatinine 2.0 mg/dL (0.8-1.5) H 09/06/16 04:48 Estimated GFR 34 ml/min 09/06/16 04:48 BUN/Creatinine Ratio 12.00 % 09/06/16 04:48 Glucose 57 mg/dL (75-100) L 09/06/16 04:48 Calcium 8.7 mg/dL (8.4-10.2) 09/06/16 04:48 Total Bilirubin 2.2 mg/dL (0.1-1.2) H 09/05/16 08:00 AST 95 units/L (5-40) H 09/05/16 08:00 ALT 70 units/L (7-56) H 09/05/16 08:00 Alkaline Phosphatase 171 units/L (35-129) H 09/05/16 08:00 Total Creatine Kinase 8 units/L (55-170) L 09/04/16 11:51 CK-MB (CK-2) < 1.0 ng/mL (0.0-4.0) 09/04/16 11:51 CK-MB (CK-2) Rel Index 12.5 (0-4) H 09/04/16 11:51 Troponin T < 0.010 ng/mL (0.00-0.029) 09/04/16 11:51 NT-Pro-B Natriuret Pep 902.7 pg/mL (0-900) H 09/04/16 11:51 Total Protein 4.7 g/dL (6.3-8.2) L 09/05/16 08:00 Albumin 2.9 g/dL (3.9-5) L 09/05/16 08:00 Albumin/Globulin Ratio 1.6 % 09/05/16 08:00 Urine Color [place] (Yellow) 09/04/16 11:36 Urine Turbidity Clear (Clear) 09/04/16 11:36 Urine pH 6.0 (5.0-7.0) 09/04/16 11:36 Ur Specific [place] 1.021 (1.003-1.030) 09/04/16 11:36 Urine Protein 30 mg/dl mg/dL (Negative) 09/04/16 11:36 Urine Glucose (UA) Neg mg/dL (Negative) 09/04/16 11:36 Urine Ketones Neg mg/dL (Negative) 09/04/16 11:36 Urine Blood Mod (Negative) 09/04/16 11:36 Urine Nitrite Neg (Negative) 09/04/16 11:36 Urine Bilirubin Sm (Negative) 09/04/16 11:36 Urine Ictotest Negative (Negative) 09/04/16 11:36 Urine Urobilinogen 4.0 mg/dL (<2.0) 09/04/16 11:36 Ur Leukocyte Esterase Mod (Negative) 09/04/16 11:36 Urine WBC (Auto) 24.0 /HPF (0.0-6.0) H 09/04/16 11:36 Urine RBC (Auto) 22.0 /HPF (0.0-6.0) 09/04/16 11:36 U Epithel Cells (Auto) 1.0 /HPF (0-13.0) 09/04/16 11:36 Hyaline Casts 1 /LPF 09/04/16 11:36 Urine Mucus Few /HPF 09/04/16 11:36 Blood Type B POSITIVE 09/04/16 13:50 Antibody Screen Negative 09/04/16 13:50 Crossmatch See Detail 09/04/16 13:50
--- NOTE | 2016-09-07 09:26 | Discharge Summary ---
Providers - Providers Date of Admission: 09/04/16 15:04 Date of discharge: 09/07/16 Attending physician: DUSTIN HOWELL 09/05/16 06:56 Consult to Wound/ET Nurse [CONS] Routine Reason For Exam: wound eval/Blister Right Chest Primary care physician: [employer]SHORE DIVER Hospitalization Condition: Fair Hospital course: Patient is a 66 y/o WM with history of B-cell prolymphocytic leukemia. Patient has been under [facility] care. He had initially been treated with Rituxan along with Cytoxan and vincristine and prednisone but had a lot of difficulty tolerating the treatment. Patient has also had right-sided MCA stroke with associated encephalopathy. He was recently switched to the ibrutinib which he had difficulty tolerating to and the dose has been reduced by half. Patient was admitted with worsening shortness of breath hypoxia and evidence of pneumonia and pancytopenia. He was maintained with IV fluid hydration, transfused platelets, also received IV antibiotic for pneumonia. His mental status remained confused with very poor oral intake. No overt active bleeding was noted during this hospitalization. Patient was thoroughly discussed and updated about the plan of care and overall prognosis. She was offered hospice care for the patient, and she agreed with the plan. Patient was discharged home with hospice care. 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 HEENT: Normocephalic. Atraumatic. patient with his eyes closed making moaning sound. Patient has dry mucous membranes. NECK: Supple. Trachea midline. CHEST/LUNGS: Clear to auscultated bilaterally, breathing nonlabored. No wheezes crackles or rhonchi. HEART/CARDIOVASCULAR: Regular in rate and rhythm. S1 and S2 positive. ABDOMEN: Abdomen is soft, nontender. Patient has normal bowel sounds. SKIN: Multiple bruises on extremities. Warm and dry. NEURO: does not Follow command, does not open eyes to verbal commend MUSCULOSKELETAL: No joint effusion or tenderness. Generalized muscle wasting EXTRIMITY: No edema, no cyanosis or clubbing. - Constitutional Vitals: Temp Pulse Resp BP Pulse Ox 98.2 F 90 22 120/64 98 09/07/16 08:00 09/07/16 08:00 09/07/16 08:00 09/07/16 08:00 09/07/16 08:00 Plan Activity: up only with assistance Weight Bearing Status: Non-Weight Bearing Diet: advance as tolerated Follow up with: PRIMARY CARE, [Primary Care Provider] - 3-5 Days
[2016-09-07] MEDS: NORCO 5/325 PO SCH (12:31)
[2016-09-07] MEDS: APRESOLINE PO SCH (12:31)
[2016-09-07] MEDS: KEPPRA PO SCH (12:32)
[2016-09-07] MEDS: COREG PO SCH (12:32)
[2016-09-07] MEDS: NORVASC PO SCH (12:32)
[2016-09-07] MEDS ORDERED: FLUSH HEPARIN IV SCH (12:45)
--- NOTE | 2016-09-11 09:57 | Query- Pneumonia ---
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 Questions asked do not imply a particular answer is desired or expected. We greatly appreciate your clarification on this issue. Clinical Documentation States: 66 year old male was admitted on 09/04/16. The discharge summary states " Patient was admitted with worsening shortness of breath hypoxia and evidence of pneumonia and pancytopenia. He also received IV antibiotic for pneumonia " Treatment: IV ceftrixone Please further specify known or suspected Etiology: [X ] Aspiration Pneumonia, liklely [ ] Gram Negative Pneumonia [ ] Gram Positive Pneumonia [ ] Pseudomonas Pneumonia [ ] MRSA - related Pneumonia [ ] Viral Pneumonia [ ] Candidal Pneumonia [ ] Postoperative Pneumonia [ ] Lobar/Basilar Pneumonia [ ] Community Acquired Pneumonia [ ] Bacterial, other (Please specify organism if possible) [ ] Other: [ ] Unable to determine Present on Admission: [ ] Yes (Y) [ ] Clinically undeterminable (W) [ ] No (N) Please also document response in your Progress Notes and/or Discharge Summary and indicate if the condition was present on admission. GAYLE
== END 2016-09-07 13:00 | disposition hospice, home (50) | DRG 177 ==
LOC: ED 11:14 → 3A 15:04
PROVIDERS: ADMIT Internal Medicine; ATTEND Internal Medicine
PROC: 30233N1 Transfusion of Nonautologous Red Blood Cells into Peripheral Vein, Percutaneous Approach (ICD-10-PCS; principal; 2016-09-04)
PROC: 4A033R1 Measurement of Arterial Saturation, Peripheral, Percutaneous Approach (ICD-10-PCS; 2016-09-04)
PROC: 30233R1 Transfusion of Nonautologous Platelets into Peripheral Vein, Percutaneous Approach (ICD-10-PCS; 2016-09-04)
DX: J69.0 Pneumonitis due to inhalation of food and vomit (principal); G93.41 Metabolic encephalopathy; J96.01 Acute respiratory failure with hypoxia; E43 Unspecified severe protein-calorie malnutrition; D61.818 Other pancytopenia; C91.30 Prolymphocytic leukemia of B-cell type not having achieved remission; C85.90 Non-Hodgkin lymphoma, unspecified, unspecified site; Z68.1 Body mass index [BMI] 19.9 or less, adult; D69.6 Thrombocytopenia, unspecified; I10 Essential (primary) hypertension; F17.210 Nicotine dependence, cigarettes, uncomplicated; E87.6 Hypokalemia; I95.9 Hypotension, unspecified; F32.9 Major depressive disorder, single episode, unspecified; E78.5 Hyperlipidemia, unspecified; D63.0 Anemia in neoplastic disease; I25.10 Atherosclerotic heart disease of native coronary artery without angina pectoris; Z86.73 Personal history of transient ischemic attack (TIA), and cerebral infarction without residual deficits; Z85.46 Personal history of malignant neoplasm of prostate; Z79.899 Other long term (current) drug therapy; Z79.82 Long term (current) use of aspirin
CPT/HCPCS: 36415; 36430; 71010; 80048; 80053; 81001; 82550; 82553; 82803; 83880; 84484; 85007; 85025; 85610; 85730; 86850; 86900; 86901; 86920; 87040; 93005; 93010; 96374; 99406; J0696; J1642; J7040; J7042; P9016; P9035